=== PATIENT | male | born 1995 | race African-American/Black ===

== ENCOUNTER 2019-09-02 12:54 | Emergency (ER) | payer OTHER ==
[2019-09-02 14:23] VITALS: BP 144/89
[2019-09-02] MEDS ORDERED: Ibuprofen TAB* 600 MG PO ONE (14:40)
--- NOTE | 2019-09-02 14:44 | UC ---
Lower Extremity/Ankle HPI - HPI Summary HPI Summary: 24-year-old male comes in with a chief complaint of right foot ankle pain after fall yesterday. Patient reports he fell down several stairs yesterday and injured his right foot and ankle. Since that time he has not been able to bear any weight on the right foot and ankle. Pain is decreased with elevation and not moving it. Patient denies any other injuries from his fall. Denies any head injury or loss of consciousness. - History of Current Complaint Chief Complaint: UCLowerExtremity Stated Complaint: S/P FALL(09/01/19)-RT FOOT INJURY Time Seen by Provider: 09/02/19 14:34 Pain Intensity: 8 - Allergies/Home Medications Allergies/Adverse Reactions: Allergies Allergy/AdvReac Type Severity Reaction Status Date / Time No Known Allergies Allergy Verified 09/02/19 14:23 Home Medications: Home Medications NK [No Home Medications Reported] 09/02/19 [History Confirmed 09/02/19] PMH/Surg Hx/FS Hx/Imm Hx Previously Healthy: Yes - Surgical History Surgical History: Yes - Family History Known Family History: Positive: Non-Contributory - Social History Alcohol Use: Weekly Substance Use Type: Marijuana Smoking Status (MU): Never Smoked Tobacco Review of Systems All Other Systems Reviewed And Are Negative: Yes Constitutional: Positive: Negative Skin: Positive: Negative Eyes: Positive: Negative ENT: Positive: Negative Respiratory: Positive: Negative Cardiovascular: Positive: Negative Gastrointestinal: Positive: Negative Motor: Positive: Negative Neurovascular: Positive: Negative Musculoskeletal: Positive: Other: - SEE HPI Neurological: Positive: Negative Psychological: Positive: Negative Is Patient Immunocompromised?: No Physical Exam Triage Information Reviewed: Yes Appearance: Well-Appearing, Well-Nourished, Pain Distress - MILD WITH RT FOOT ROM AND EXAM Vital Signs: Initial Vital Signs Temp 98.3 F 09/02/19 14:17 Pulse 75 09/02/19 14:17 Resp 16 09/02/19 14:17 BP 144/89 09/02/19 14:17 Pulse Ox 100 09/02/19 14:17 Vital Signs Reviewed: Yes Eye Exam: Normal Eyes: Positive: Conjunctiva Clear Neck: Positive: Supple Respiratory: Positive: No respiratory distress Musculoskeletal: Positive: Other: - Right foot is swollen and tender in the midfoot and into the ankle. Normal capillary refill normal sensation. Pain with any range of motion. Neurological: Positive: Alert Psychological: Positive: Age Appropriate Behavior Skin Exam: Normal Lower Extremity Course/Dx - Course Course Of Treatment: Outside Contractor Sales: Matheus Taylor Daniel, ([id number]) Notched Blade Loader: CARLOS ALBERTO ( LISAANCE) Report Date: 09/02/2019 14:40:00 Report Status: Final ====== Start of Report Content Patient Name: CHACHA VEE Medical Record#: [id number] Ordering Physician: Rj Gibson MD Acct.#: [id number] : 01/1995 Age: 24 Sex: M Location: [facility] Exam Date: 09/02/191439 ADM Status: REG ER Order Information: FOOT RIGHT 3+ VWS Accession Number: [id number] CPT: 16187 HISTORY: PAIN S/P FALL 09/01/19 . COMPARISONS: None relevant available at the time of dictation. VIEWS: 6, Frontal, lateral, and oblique views of the right ankle end of the right foot FINDINGS: BONE DENSITY: Normal. BONES: There is no displaced fracture. JOINTS: There is mild osteoarthritis of the midfoot. There is mild osteoarthritis of the first MTP joint. ALIGNMENT: There is no dislocation. SOFT TISSUES: Unremarkable. OTHER FINDINGS: None. IMPRESSION: OSTEOARTHRITIS. NO ACUTE OSSEOUS INJURY. IF SYMPTOMS PERSIST, RECOMMEND REPEAT IMAGING. <Electronically signed by Matheus Taylor MD in OV > 09/02/19 1500 Dictated By: Matheus Taylor MD Dictated Date/Time: 145 Transcribed Date/Time: 09/02/191458 Copy to: CC:No Primary Care Phys, NOPCP ; Rj Gibson MD Imaging - [facility] Imaging [facility] Imaging - [facility] [address] [place] [address] [address] [address] ph ([phone]) ph ([phone]) ph ([phone]) ==== End of Report Content Outside Contractor Sales: Matheus Taylor Daniel, ([id number]) Notched Blade Loader: CARLOS ALBERTO, ( NUANCE) Report Date: 09/02/2019 14:40:00 Report Status: Final ====== Start of Report Content Patient Name: CHACHA VEE Medical Record#: [id number] Ordering Physician: Rj Gibson MD Acct.#: [id number] : 01/1995 Age: 24 Sex: M Location: [facility] Exam Date: 09/02/19 1440 ADM Status: REG ER Order Information: ANKLE RIGHT 3+VWS Accession Number: [id number] CPT: 84813 HISTORY: PAIN S/P FALL 09/01/19 . COMPARISONS: None relevant available at the time of dictation. VIEWS: 6, Frontal, lateral, and oblique views of the right ankle end of the right foot FINDINGS: BONE DENSITY: Normal. BONES: There is no displaced fracture. JOINTS: There is mild osteoarthritis of the midfoot. There is mild osteoarthritis of the first MTP joint. ALIGNMENT: There is no dislocation. SOFT TISSUES: Unremarkable. OTHER FINDINGS: None. IMPRESSION: OSTEOARTHRITIS. NO ACUTE OSSEOUS INJURY. IF SYMPTOMS PERSIST, RECOMMEND REPEAT IMAGING. <Electronically signed by Matheus Taylor MD in OV > 09/02/19 1500 Dictated By: Matheus Taylor MD Dictated Date/Time: 1458 Transcribed Date/Time: 09/02/191458 Copy to: CC:No Primary Care Phys, NOPCP ; Rj Gibson MD Imaging - [facility] Imaging - [facility] Imaging - [facility] [address] [address] ph ([phone]) ph ([phone]) ph ([phone]) ==== End of Report Content I discussed the x-rays with the patient. No fracture seen. Is primarily midfoot to give the patient the greatest pain. Patient placed and a cam boot by nursing and clinic patient neurovascular intact after placement of the Garza. Patient will be weightbearing as tolerated and follow-up with sports medicine or orthopedics. - Differential Dx/Diagnosis Provider Diagnosis: Right foot pain, Right ankle pain Discharge ED - Sign-Out/Discharge Documenting (check all that apply): Patient Departure All imaging exams completed and their final reports reviewed: Yes - Discharge Plan Condition: Stable Disposition: HOME Patient Education Materials: Foot Sprain (ED) Forms: *Physical Education Release Referrals: [facility] [Provider Group] Roel Wesley MD [Medical Doctor] - Additional Instructions: FOLLOW UP WITH SPORTS MEDICINE OR ORTHOPEDICS. GET REEVALUATED SOONER IF NOT IMPROVING OR YOUR CONDITION WORSENS OR ANY QUESTIONS OR CONCERNS. - Billing Disposition and Condition Condition: STABLE Disposition: Home
== END 2019-09-02 15:45 | disposition home or self-care (01) ==
LOC: UCCORT 12:54
DX: M25.571 Pain in right ankle and joints of right foot (principal); M19.071 Primary osteoarthritis, right ankle and foot
CPT/HCPCS: 99203; A9270-GY; G0463